=== PATIENT | female | born 2000 | race Caucasian/White ===

== ENCOUNTER 2023-07-19 17:13 | Outpatient (CLI) | payer OTHER, SELFPAY ==
[2023-07-19 18:19] LABS: Beta HCG Quantitative < 2.39 mIU/ML
[2023-07-22 15:31] LABS: Osmolality, Urine 205 mOsm/kg (50-1200)
== END 2023-07-19 17:14 | disposition home or self-care (01) ==
PROVIDERS: PCP Family Medicine; Referring Provider Internal Medicine; Visit Provider Obstetrics & Gynecology
DX: E87.1 Hypo-osmolality and hyponatremia (principal); N92.6 Irregular menstruation, unspecified
CPT/HCPCS: 36415; 80048; 83935; 84702